=== PATIENT | female | born 1995 | race Two or more races ===

== ENCOUNTER 2017-06-04 09:38 | Emergency (ER) | payer OTHER ==
[~2017-06-04] VITALS: Ht 152.4 cm; Wt 75.7 kg
[~2017-06-04 09:38] MED LIST: CEFTIN250 MG PO; KEFLEX500 MG PO; MIRALAX510 GM PO; PEPCID40 MG PO; PYRIDIUM100 MG PO; ZOFRAN8 MG PO
[2017-06-04] MEDS ORDERED: IRON18 MG (09:45)
[2017-06-04] MEDS ORDERED: LOVENOX40 MG/0.4 (09:45)
[2017-06-04] MEDS ORDERED: PRENATALES (09:48)
== END 2017-06-04 12:25 | disposition home or self-care (01) ==
LOC: ER 09:38
DX: O26.892 Other specified pregnancy related conditions, second trimester (principal); K52.89 Other specified noninfective gastroenteritis and colitis; R10.2 Pelvic and perineal pain; Z34.82 Encounter for supervision of other normal pregnancy, second trimester

== ENCOUNTER 2017-06-14 08:43 | Emergency (ER) | payer OTHER ==
[~2017-06-14] VITALS: Ht 152.4 cm; Wt 74.8 kg
[~2017-06-14 08:43] MED LIST changes: +IRON18 MG; +LOVENOX40 MG/0.4; +PRENATALES
[2017-06-14] MEDS ORDERED: ASPIR 8181 MG (09:12)
== END 2017-06-14 12:53 | disposition home or self-care (01) ==
LOC: ER 08:43
DX: O26.892 Other specified pregnancy related conditions, second trimester (principal); R10.2 Pelvic and perineal pain; Z34.82 Encounter for supervision of other normal pregnancy, second trimester

== ENCOUNTER 2017-07-10 06:30 | Emergency (ER) | payer OTHER ==
[~2017-07-10] VITALS: Ht 152.4 cm; Wt 77.1 kg
[~2017-07-10 06:30] MED LIST changes: +ASPIR 8181 MG
[2017-07-10] MEDS ORDERED: MACRODANTIN100 M1 PO (13:06)
== END 2017-07-10 13:15 | disposition home or self-care (01) ==
LOC: ER 06:30
DX: Z34.02 Encounter for supervision of normal first pregnancy, second trimester (principal); O23.32 Infections of other parts of urinary tract in pregnancy, second trimester

== ENCOUNTER 2017-07-31 22:22 | Emergency (ER) | payer OTHER ==
[~2017-07-31] VITALS: Ht 152.4 cm; Wt 79.8 kg
[~2017-07-31 22:22] MED LIST changes: +MACRODANTIN100 M1 PO
[2017-08-01] MEDS ORDERED: ZYRTEC10 MG PO (02:40)
[2017-08-01] MEDS ORDERED: ZYNCOF 20-400120 ML PO (02:40)
== END 2017-08-01 02:48 | disposition home or self-care (01) ==
LOC: ER 22:22
DX: J06.9 Acute upper respiratory infection, unspecified (principal)

== ENCOUNTER → 2017-08-04 | Emergency (ER) | payer OTHER ==
[~2017-08-04] VITALS: Ht 152.4 cm; Wt 79.8 kg
[~2017-08-04] MED LIST changes: +ZYNCOF 20-400120 ML PO; +ZYRTEC10 MG PO
== END | disposition home or self-care (01) ==
LOC: ER 18:36
DX: O26.892 Other specified pregnancy related conditions, second trimester (principal); S30.0XXA Contusion of lower back and pelvis, initial encounter; W10.8XXA Fall (on) (from) other stairs and steps, initial encounter; Y93.89 Activity, other specified; Y92.89 Other specified places as the place of occurrence of the external cause; Y99.8 Other external cause status; Z34.01 Encounter for supervision of normal first pregnancy, first trimester

== ENCOUNTER 2017-10-02 21:54 | Outpatient (CLI) | payer OTHER | END 2017-10-03 00:12 | disposition left against medical advice (07) | LOC: OBS/DEL 21:54 | DX: O26.893 Other specified pregnancy related conditions, third trimester (principal); R10.2 Pelvic and perineal pain; Z34.83 Encounter for supervision of other normal pregnancy, third trimester ==

== ENCOUNTER 2017-11-06 14:08 | Emergency (ER) | payer OTHER ==
[~2017-11-06] VITALS: Ht 152.4 cm; Wt 77.1 kg
== END 2017-11-06 21:55 | disposition home or self-care (01) ==
LOC: ER 14:08
DX: N39.0 Urinary tract infection, site not specified (principal); R50.9 Fever, unspecified; G89.18 Other acute postprocedural pain; M79.1 Myalgia

== ENCOUNTER 2017-12-07 10:39 | Emergency (ER) | payer OTHER ==
[~2017-12-07] VITALS: Ht 152.4 cm; Wt 80.7 kg
[2017-12-07] MEDS ORDERED: CENTRUM ADULTS1 EACH (11:22)
== END 2017-12-07 16:38 | disposition home or self-care (01) ==
LOC: ER 10:39
DX: N93.8 Other specified abnormal uterine and vaginal bleeding (principal)

== ENCOUNTER → 2018-05-18 | Emergency (ER) | payer OTHER ==
[~2018-05-18] MED LIST changes: +CENTRUM ADULTS1 EACH; +TRUVADA 100 MG1 EACH PO
== END | disposition left against medical advice (07) ==
LOC: ER 11:20
DX: Z53.20 Procedure and treatment not carried out because of patient's decision for unspecified reasons (principal)

== ENCOUNTER → 2018-05-29 | Emergency (ER) | payer OTHER ==
[~2018-05-29] VITALS: Ht 157.5 cm; Wt 80.3 kg
[~2018-05-29] MED LIST changes: +TUSSIN15 MG/5 M1 PO
== END | disposition home or self-care (01) ==
LOC: ER 10:53
DX: B34.9 Viral infection, unspecified (principal)

== ENCOUNTER 2018-05-30 17:45 | Emergency (ER) | payer OTHER ==
[~2018-05-30] VITALS: Ht 152.4 cm; Wt 72.6 kg
== END 2018-05-30 21:19 | disposition home or self-care (01) ==
LOC: ER 17:45
DX: J11.1 Influenza due to unidentified influenza virus with other respiratory manifestations (principal); G89.29 Other chronic pain; M25.562 Pain in left knee; M25.561 Pain in right knee; M25.551 Pain in right hip; M25.552 Pain in left hip

== ENCOUNTER → 2018-07-05 | Emergency (ER) | payer OTHER ==
[~2018-07-05] VITALS: Ht 152.4 cm; Wt 68.0 kg
== END | disposition home or self-care (01) ==
LOC: ER 19:06
DX: M62.830 Muscle spasm of back (principal)

== ENCOUNTER 2018-07-17 18:15 | Emergency (ER) | payer OTHER ==
[~2018-07-17] VITALS: Ht 152.4 cm; Wt 77.1 kg
== END 2018-07-17 19:25 | disposition home or self-care (01) ==
LOC: ER 18:15
DX: M54.2 Cervicalgia (principal)

== ENCOUNTER 2019-02-28 20:20 | Emergency (ER) | payer OTHER ==
[~2019-02-28] VITALS: Ht 154.9 cm; Wt 74.8 kg
== END 2019-02-28 22:26 | disposition home or self-care (01) ==
LOC: EMR PED 20:20 → ER 20:21 → EMR PED 20:21 → ER 22:26
DX: R51 Headache (principal)